=== PATIENT | female | born 1945 | race Caucasian/White ===

== ENCOUNTER 2018-05-23 21:18 | Outpatient (REF) | payer MEDICARE, OTHER, SELFPAY ==
[2018-05-23 22:05] LABS: Anion Gap 9.7 mmol/L (3-11); BUN 12 mg/dL (7-18); CO2 27.3 mmol/L (21.0-32.0); CREATININE 0.67 mg/dL (0.55-1.02); Chloride 106 mmol/L (98-107); Glucose 76 mg/dL (70-100); Potassium 4.2 mmol/L (3.5-5.1); Sodium 143 mmol/L (136-145)
== END 2018-05-23 21:38 ==
LOC: NCHCN 21:18
PROVIDERS: PCP Family Medicine; Visit Provider Nurse Practitioner Family
DX: F32.9 Major depressive disorder, single episode, unspecified (principal); K22.2 Esophageal obstruction; I10 Essential (primary) hypertension; G70.00 Myasthenia gravis without (acute) exacerbation
CPT/HCPCS: 80048

== ENCOUNTER 2021-03-16 16:27 | Outpatient (REF) | payer MEDICARE, OTHER, SELFPAY ==
[2021-03-16 22:15] LABS: Calculated LDL 156 mg/dL (<100); Cholesterol 263 mg/dL (<200); HDL Cholesterol 77 mg/dL (40-60); Triglyceride 152 mg/dL (<150)
[2021-03-16 22:37] LABS: Vitamin D 25 Total 36.9 ng/mL (30-100)
== END 2021-03-16 16:28 | disposition home or self-care (01) ==
LOC: NCHCN 16:27
PROVIDERS: PCP Family Medicine; Visit Provider Nurse Practitioner Family
DX: E78.5 Hyperlipidemia, unspecified (principal); M81.0 Age-related osteoporosis without current pathological fracture
CPT/HCPCS: 80061; 82306

== ENCOUNTER 2025-04-18 12:40 | Outpatient (REF) | payer MEDICARE, OTHER, SELFPAY ==
[2025-04-18 16:55] LABS: ALT 19 U/L (10-49); AST 22 U/L (<34); Albumin 4.3 g/dL (3.2-5.0); Alkaline Phosphatase 71 U/L (46-116); Anion Gap 8.8 mmol/L (3-11); BUN 17 mg/dL (9-23); Bilirubin, Total 0.4 mg/dL (0.2-1.2); CO2 27.2 mmol/L (20.0-31.0); Calcium 9.4 mg/dL (8.3-10.6); Chloride 106 mmol/L (98-107); Glucose 75 mg/dL (74-106); Potassium 4.4 mmol/L (3.5-5.1); Sodium 142 mmol/L (136-145); Total Protein 7.2 g/dL (5.7-8.2)
[2025-04-18 17:01] LABS: Vitamin D 25 Total 45 ng/mL (30-100)
[2025-04-18 17:34] LABS: HCT 39.1 % (36.0-46.0); HGB 12.1 g/dL (11.2-15.7); MCH 26.9 pg (27.0-33.0); MCHC 30.9 % (32.0-36.0); MCV 87 fL (80-95); MPV 11.7 fL (8.0-11.0); Platelet Count 253 10^3/uL (130-400); RBC 4.50 10^6/uL (3.93-5.22); RDW 13.1 % (11.7-14.6); RDW-SD 41.5 fL; WBC 7.08 10^3/uL (4.4-10.8)
== END 2025-04-18 12:41 | disposition home or self-care (01) ==
LOC: NCHCN 12:40
PROVIDERS: PCP Family Medicine; Visit Provider Nurse Practitioner Family
DX: M81.0 Age-related osteoporosis without current pathological fracture (principal); I10 Essential (primary) hypertension
CPT/HCPCS: 80053; 82306; 85027